=== PATIENT | female | born 1965 | race Asian ===

== ENCOUNTER 2024-08-02 11:29 | Outpatient (REF) | payer OTHER, SELFPAY ==
[2024-08-02 13:03] LABS: Erythrocyte Sedimentation Rate 77 MM/HR (0-20)
[2024-08-02 13:12] LABS: Syphilis Screen Nonreactive (Nonreactive)
[2024-08-02 13:27] LABS: Folate 12.2 ng/mL (> or = 4.0); Vitamin B12 453 pg/mL (200-900)
[2024-08-03 11:59] LABS: Lyme Abs Screen <0.90 index
== END 2024-08-02 11:30 | disposition home or self-care (01) ==
LOC: HO.LAB 11:29
PROVIDERS: Visit Provider Psychiatry & Neurology Neurology
DX: G93.40 Encephalopathy, unspecified (principal)
CPT/HCPCS: 36415; 82607; 82746; 85652; 86617; 86618; 86780

== ENCOUNTER 2024-08-26 16:47 | Outpatient (REF) | payer OTHER, SELFPAY ==
--- NOTE | ~2024-08-26 | MR_ITS ---
EXAMINATION: MR BRAIN WITHOUT CONTRAST CLINICAL INFORMATION: Encephalopathy. COMPARISON: None available. TECHNIQUE: MRI of the brain was obtained using routine sequences without contrast. FINDINGS: No focal restricted diffusion is demonstrated to suggest acute or subacute cerebral ischemia. No evidence of acute or chronic hemorrhagic products on heme-sensitive imaging. Scattered and partially confluent periventricular, deep white matter, and brainstem T2 FLAIR hyperintensities consistent with mild to moderate underlying microangiopathy. Proportional prominence of the ventricles and sulcal spaces without evidence of obstructive hydrocephalus. No abnormal mass effect. No midline shift. Normal appearance of the pituitary gland. Normal positioning of the cerebellar tonsils. Normal arterial and venous vascular flow voids are present. Normal, homogeneous marrow signal. Mild mucosal thickening of the paranasal sinuses. Moderate rightward nasal septal deviation. No signal abnormalities within the mastoids. Left-sided lens extraction. MR/MR head/brain wo con IMPRESSION: 1. No acute intracranial abnormalities. 2. Mild to moderate underlying microangiopathy and generalized cerebral volume loss. Electronically signed by: Catracho Person DO 10/05/2024 05:53 AM EST
== END 2024-08-26 16:48 | disposition home or self-care (01) ==
LOC: HO.MRI 16:47
PROVIDERS: Visit Provider Psychiatry & Neurology Neurology
DX: G93.40 Encephalopathy, unspecified (principal)
CPT/HCPCS: 70551

== ENCOUNTER 2024-08-29 07:30 | Day surgery (SDC) | payer OTHER, SELFPAY ==
[2024-08-24 16:32] VITALS: BMI 25.6
[2024-08-29 08:05] VITALS: BMI 26.0
[2024-08-29 08:15] VITALS: BP 169/71; PULSE 75; RESP 16; TEMP 36.5; O2SAT 98
[2024-08-29] MEDS: Tetracaine HCl/PF 0.5% Oph Sol 4 ML DROPS 1 DROP EYE-RIGHT (08:19)
[2024-08-29] MEDS: Cyclopentolate 1 % Ophth Sol 2 ML DRPBTL 1 DROP EYE-RIGHT ×3 (08:20→08:24)
[2024-08-29] MEDS: Tropicamide 1 % Ophth Sol 3 ML BTL 1 DROP EYE-RIGHT ×3 (08:21→08:25)
[2024-08-29] MEDS: Ketorolac Tromethamine 0.5% Op 10 ML DROPS 1 DROP EYE-RIGHT ×3 (08:21→08:25)
[2024-08-29] MEDS: Phenylephrine HCL 2.5% Oph SoL 2 ML BOTTLE 1 DROP EYE-RIGHT ×3 (08:22→08:26)
--- NOTE | 2024-08-29 09:00 | HO.ANESPROP2 ---
HPI - Anesthesia Eval Consult details Narrative: 58 yo F presenting for right cataract extraction IOL insertion. [facility] Past Medical History Medical History (Updated 08/29/24 @ 08:03 by Sheron العلي RN) Sleep apnea Microalbuminuria Vitamin D deficiency Chronic intractable headache GERD (gastroesophageal reflux disease) Vertigo HLD (hyperlipidemia) HTN (hypertension) Chronic kidney disease, stage 3b Diabetes mellitus, type 2 Family History Family history of problems with anesthesia: No Surgical History Surgical History (Updated 08/24/24 @ 16:31 by Rosetta Nam RN) Hx of left cataract extraction (~2019) History of Problems with Anesthesia: No Social History Social History Patient Tobacco Use Status: Never used Tobacco Use of substances other than those prescribed or required for medical reasons: No Are you DNR?: No Advance Directives: No Advance Directives Information Provided: Yes Advance Directives on File: No Meds Allergies Allergy/AdvReac Type Severity Reaction Status Date / Time No Known Allergies Allergy Verified 08/24/24 16:34 Active Medications: Current Medications Cyclopentolate HCl (Cyclopentolate 1 % Ophth Annetta 2 Ml Drpbtl) 1 drop EYE-RIGHT Q5M EHSAN Stop: 08/29/24 08:11 Ketorolac Tromethamine (Ketorolac Tromethamine 0.5% Op 10 Ml Drops) 1 drop EYE-RIGHT Q5M EHSAN Stop: 08/29/24 08:11 Moxifloxacin HCl (Moxifloxacin Hcl 0.5 % Oph Annetta 3 Ml Drpbtl) 1 drop EYE-RIGHT POSTOP ONE Stop: 08/29/24 08:01 Phenylephrine HCl (Phenylephrine Hcl 2.5% Oph Annetta 2 Ml Bottle) 1 drop EYE-RIGHT Q5M EHSAN Stop: 08/29/24 08:11 Povidone Iodine (Povidone Iodine 5 % Ophth Soln 30 Ml Bottle) 1 appl EYE-RIGHT PREOP PRN PRN Reason: Pre-Op Surgical Implant Prophy Tetracaine HCl (Tetracaine Hcl/Pf 0.5% Oph Annetta 4 Ml Drops) 1 drop EYE-RIGHT PREOP ONE Stop: 08/29/24 08:01 Triamcinolone Acetonide (Triamcinolone Acetonide 40 Mg/Ml Vial) 40 mg IM POSTOP ONE Stop: 08/29/24 08:01 Tropicamide (Tropicamide 1 % Ophth Annetta 3 Ml Btl) 1 drop EYE-RIGHT Q5M EHSAN Stop: 08/29/24 08:11 Home Medications ?Medication ?Instructions ?Recorded ?Confirmed ?Last Taken ?Type Lotrisone 08/24/24 Unknown History acetaminophen 650 mg 650 mg PO Q8H PRN Pain 08/24/24 08/24/24 Unknown History tablet,extended release amitriptyline 10 mg tablet 10 mg PO BEDTIME 08/24/24 08/24/24 Unknown History amlodipine 10 mg-olmesartan 20 mg 1 tab PO DAILY 08/24/24 08/24/24 Unknown History tablet atorvastatin 20 mg tablet 20 mg PO DAILY 08/24/24 08/24/24 Unknown History calcium carbonate 600 mg-vitamin cap PO 08/24/24 Unknown History D3 5 mcg (200 unit) capsule (Calcium 600 + D(3)) capsaicin 0.075 % topical cream appl topical 08/24/24 Unknown History gabapentin 100 mg capsule 100 mg PO BID 08/24/24 08/24/24 Unknown History insulin aspart U-100 100 unit/mL unit subcut TID 08/24/24 Unknown History (3 mL) subcutaneous pen (Novolog FlexPen U-100 Insulin aspart) insulin glargine 100 unit/mL (3 38 unit subcut BEDTIME 08/24/24 08/24/24 Unknown History mL) subcutaneous pen (Lantus Solostar U-100 Insulin) magnesium oxide 400 mg (241.3 mg 800 mg PO BEDTIME 08/24/24 08/24/24 Unknown History magnesium) tablet metformin 500 mg tablet 1,000 mg PO BID 08/24/24 08/24/24 Unknown History omeprazole 40 mg capsule,delayed 40 mg PO DAILY 08/24/24 08/24/24 08/29/24 History release propranolol 10 mg tablet 10 mg PO BEDTIME 08/24/24 08/24/24 Unknown History trazodone 100 mg tablet 100 mg PO BEDTIME 08/24/24 08/24/24 Unknown History Exam Exam Date and Time: 08/29/24 0900 Height,Weight and Vital Signs: Height 5 ft 4 in Weight 67.585 kg Airway Mallampati Class: II TM Dist: >3cm Neck ROM: Full Loose/Missing/Broken Teeth: Yes (multiple missing and broken teeth) Heart: S1S2 Lungs: CTSB Assessment and Plan Assessment Anesthesia Assessment: Anesthesia Plan Discussed and Chart Reviewed Final Anesthetic Review Family History of Problems with Anesthesia: No History of Problems with Anesthesia: No NPO: Yes ASA Class: III Final Preanesthetic Review: No Changes in Pt Med Stat, Meds/Allgs Chart Reviewed, Consent Obtained/Reviewed and Anes Risks/Benef Reviewed Patient Risk: Intermediate Procedure Risk: Low Anesthetic Plan Anesthetic Plan: MAC: and Agree w/ Assess. and Plan Disposition: Standard PACU
--- NOTE | 2024-08-29 09:00 | MHC.SHP ---
Pre-Procedural Eval Section A - 24 Hr Update-Section A only Date of Service: 08/29/24 The patient is an INPATIENT: No Changes since office visit: No Cold of Flu in the past 2 weeks, No New Medical Problems, No Changes in Medication and No Patient answered all questions The patient has been examined within 24 hours of the surgical procedure. The History & Physical has been completed within 30 days and I have reviewed it.: Yes Section B - Complete if H&P > 30 days Chief Complaint: Age-related nuclear cataract, right eye Allergies: Allergies Allergy/AdvReac Type Severity Reaction Status Date / Time No Known Allergies Allergy Verified 08/24/24 16:34 Plan Diagnosis/Plan: Unchanged I have reviewed the history and physical and performed a pertinent physical examination on my patient. No changes have occurred unless specified. Time Spent With Patient Time: Total time managing care of this patient today ____ minutes.
--- NOTE | 2024-08-29 09:01 | P.PCNO_ITS ---
Ophthalmology Procedure Procedure Date of Service: 08/29/24 Ophthalmology Viscoelastic: Healon Duet Dual Pack Pro Ophthalmology Lenses: IOL Acrysof MP - [id number] (21.5) Procedure Notes: PREOPERATIVE DIAGNOSIS: Decreased visual acuity right eye secondary to cataract POSTOPERATIVE DIAGNOSIS: Same PROCEDURE: Right cataract extraction with intraocular lens insertion SURGEON: Ricardo Smith M.D. ANESTHESIA: Topical/MAC ESTIMATED BLOOD LOSS: None COMPLICATIONS: None After obtaining informed consent, the patient was brought to the operating room suite and placed in the supine position. After adequate sedation per anesthesia, topical drops of Tetracaine were given to the right eye. The eye was then prepped and draped in the usual sterile fashion. The operating room microscope was then positioned over the operative eye and a lid speculum placed. A paracentesis was created. Viscoelastic was then instilled into the anterior chamber. A three plane incision was then created temporally, utilizing a 2.85 mm keratome. Capsulotomy forceps were then utilized to create a circular tear capsulotomy. Hydrodissection and hydrodelineation were carried out until adequate mobilization of the nucleus occurred. Phacoemulsification was then utilized to remove the dense central nu cleus followed by removal of the cortical material utilizing the automated aspiration irrigation unit. Viscoelastic was instilled into the posterior capsular bag followed by placement of a posterior chamber intraocular lens without difficulty. The residual Viscoelastic was then removed utilizing the automated IA machine. The wound was checked and found to be watertight. The patient tolerated the procedure well and the lid speculum was removed. Intracameral injection of Vigamox 0.1 mL followed by a subtenon injection of Kenalog-40 0.2 mL were administered. The patient will be seen in the a.m.
[2024-08-29 09:04] LABS: Glucose, Whole Blood 173 mg/dL (60-115)
[2024-08-29 09:31] VITALS: BP 164/78; PULSE 79; RESP 16; TEMP 36.6; O2SAT 99
[2024-08-29 09:36] VITALS: BP 162/73; PULSE 76; RESP 16; O2SAT 98
== END 2024-08-29 10:00 | disposition home or self-care (01) ==
PROVIDERS: Visit Provider Ophthalmology
PROC: (CPT 66985; principal; 2024-08-29 09:00)
DX: H25.11 Age-related nuclear cataract, right eye (principal); H54.7 Unspecified visual loss; E11.3593 Type 2 diabetes mellitus with proliferative diabetic retinopathy without macular edema, bilateral; H04.123 Dry eye syndrome of bilateral lacrimal glands; Z96.1 Presence of intraocular lens; I10 Essential (primary) hypertension; Z79.4 Long term (current) use of insulin; Z79.84 Long term (current) use of oral hypoglycemic drugs; Z79.899 Other long term (current) drug therapy
CPT/HCPCS: 66984; 82947; J2250; J3010; J3301; V2630